=== PATIENT | male | born 1935 | race Hispanic/Latino ===

== ENCOUNTER 2017-08-01 10:26 | Outpatient (CLI) | payer MEDICARE ==
[2017-08-01 11:07] LABS: Blood Urea Nitrogen 23 mg/dL (9-20)
--- NOTE | 2017-08-01 11:58 | Cat Scan Report ---
CT ABDOMEN AND PELVIS WITHOUT CONTRAST INDICATION: Left-sided abdominal pain. COMPARISON: None similar at this institution. FINDINGS: Noncontrast abdomen and pelvis CT performed. LUNG BASES: Coronary and aortic atherosclerotic calcifications. ABDOMEN: Please note that sensitivity to detect small visceral lesions is limited due to the absence of intravenous or oral contrast. Large bilateral renal cysts, the largest 8.5 cm exophytic off the right lower renal pole while left interpolar exophytic cyst is approximately 11 x 7 cm as on axial image 76. Another 5.5 cm left interpolar cortical cyst posteriorly and a 2.5 cm hyperdense, likely hemorrhagic cyst anteroinferiorly also noted. Grossly unremarkable unenhanced liver, spleen, poorly distended gallbladder, pancreas, adrenals and IVC. Nonaneurysmal abdominal aorta with atherosclerotic calcifications. Nonopacified GI tract evaluation limited, though grossly nonobstructive. Mild stool throughout colon. Hepatic flexure incidentally noted interposed between the right hemidiaphragm and the liver. Few descending colon diverticuli. No ascites or size significant adenopathy. PELVIS: Numerous proximal to mid sigmoid diverticuli without acute complication. Mildly enlarged prostate creates an impression at the bladder base and may be correlated for clinically and with PSA. Small prostatic calcifications. No free fluid or significant adenopathy. Approximately 1.8 cm fat containing right inguinal hernia. Severe/advanced multilevel lumbar degenerative changes, including disc narrowing, spurring as also approximately 4-5 mm spondylolisthesis from L2-L5. Lower thoracic spine degenerative spurring and bilateral hip degenerative changes also noted. Osteopenia. CONCLUSION: 1. Numerous bilateral renal cysts, the largest on the left. A small left renal hemorrhagic cyst anteroinferiorly also noted, as described. 2. Various other incidental findings, including diverticulosis, enlarged prostate and advanced multilevel spinal degenerative changes, amongst others, as above. Thank you for the opportunity to participate in this patient's care.
== END 2017-08-01 10:27 | disposition home or self-care (01) ==
LOC: CT 10:26
PROVIDERS: ATTEND Internal Medicine
DX: N28.1 Cyst of kidney, acquired (principal); K57.30 Diverticulosis of large intestine without perforation or abscess without bleeding; N40.0 Benign prostatic hyperplasia without lower urinary tract symptoms; K40.90 Unilateral inguinal hernia, without obstruction or gangrene, not specified as recurrent; I25.10 Atherosclerotic heart disease of native coronary artery without angina pectoris; I70.0 Atherosclerosis of aorta; N42.89 Other specified disorders of prostate; M47.896 Other spondylosis, lumbar region; M43.16 Spondylolisthesis, lumbar region; M16.0 Bilateral primary osteoarthritis of hip; M85.88 Other specified disorders of bone density and structure, other site; M53.84 Other specified dorsopathies, thoracic region
CPT/HCPCS: 36415; 74176; 82565; 84520

== ENCOUNTER 2017-10-04 15:27 | Outpatient (CLI) | payer MEDICARE ==
--- NOTE | 2017-10-05 08:43 | Magnetic Resonance Report ---
MR ABDOMEN WITHOUT CONTRAST MR PELVIS WITHOUT CONTRAST HISTORY: Cyst of kidney. TECHNIQUE: Multiple T1 and T2-weighted images were obtained with and without fat suppression. No IV gadolinium was administered. COMPARISON: Noncontrast CT abdomen and pelvis dated 08/01/17. FINDINGS: Both kidneys are normal size and position. Bilateral renal cysts are again demonstrated on MRI. There are approximately 5 simple cysts in the right kidney. The largest cyst measures 9.1 cm in diameter at the inferior pole the right kidney. The four additional simple cysts within the right kidney measure up to 1 cm. 3 cysts are identified in the left kidney. There are 2 large simple cysts near mid pole of the left kidney measuring 6.2 cm and 9.0 cm. A 2 cm slightly complex cyst containing hemorrhagic or proteinaceous debris is also identified anteriorly near mid pole of the left kidney. No IV contrast was administered, however this has the appearance of a hemorrhagic cyst on both noncontrast CT and noncontrast MR. No suspicious renal mass is suspected. Signal characteristics of the liver, biliary system, pancreas, spleen and adrenal glands are within normal limits. The aorta is normal caliber. No evidence for ascites, adenopathy or acute inflammation. The bowel loops are poorly imaged on MR. There is suggestion of moderate sigmoid diverticulosis. No obvious obstruction or focal inflammation. The appendix is not confidently identified. The bladder is partially empty but unremarkable. The prostate gland is borderline to mildly enlarged measuring 5.3 cm in diameter. Mild levoscoliosis with advanced degenerative changes is noted in the lumbar spine. Advanced degenerative changes are also identified in both hips. There is a moderate to large left hip effusion. No evidence for fracture or suspicious bony lesion. IMPRESSION: Bilateral renal cysts as outlined above which are unchanged since the previous CT abdomen and pelvis dated 08/01/17. Nearly all of the cysts are consistent with Bosniak class I cysts. There is one 2 cm cyst in the mid left kidney consistent with a Bosniak class II cyst.
== END 2017-10-04 15:28 | disposition home or self-care (01) ==
LOC: MRI 15:27
PROVIDERS: ATTEND Internal Medicine Nephrology
DX: N28.1 Cyst of kidney, acquired (principal); M41.86 Other forms of scoliosis, lumbar region; M47.896 Other spondylosis, lumbar region; M16.0 Bilateral primary osteoarthritis of hip
CPT/HCPCS: 72195; 74181

== ENCOUNTER 2020-11-21 07:55 | Inpatient (IN) | payer MEDICARE ==
--- NOTE | 2020-11-21 08:33 | Emergency Department Report ---
HPI - General Chief Complaint: Fall Time Seen by Provider: 11/21/20 08:21 - HPI HPI: Room 21 The patient is an 85-year-old male present with a chief complaint of "fall." The patient reportedly fell this morning. The describes that as the patient slid out of bed and did not strike his head. There is no loss of consciousness. When asked what made him come to the emergency department the patient replies he does not know. When asked if anything is bothering him the patient replies "no." ED Past Medical Hx - Past Medical History Previous Medical History?: Yes Additional medical history: a.fib, cataract, hard of hearing - Surgical History Past Surgical History?: Yes - Social History Smoking Status: Former Smoker ED Review of Systems ROS: Stated complaint: GROUND LEVEL FALL Other details as noted in HPI Comment: Unobtainable due to pts medical conditions Physical Exam - Physical Exam Vital Signs: Vital Signs 11/21/20 07:57 Temperature 98.5 F Pulse Rate 66 Respiratory 25 H Rate Blood Pressure 167/86 O2 Sat by Pulse 100 Oximetry Physical Exam: GENERAL: The patient is well-developed well-nourished []. [] HEENT: Normocephalic. Atraumatic. Extraocular motions are intact. Patient has moist mucous membranes. NECK: Supple. No meningitic signs are noted. There is no adenopathy noted. CHEST/LUNGS: Clear to auscultation. There is no respiratory distress noted. HEART/CARDIOVASCULAR: Regular. There is no tachycardia. There is no gallop rub or murmur. ABDOMEN: Abdomen is soft, nontender. Patient has normal bowel sounds. There is no abdominal distention. SKIN: There is no rash. There is no edema. There is no diaphoresis. NEURO: The patient is awake, alert, and oriented. The patient is cooperative. The patient has normal speech. The patient able to move his left lower extremity and left upper extremity normally. Patient exhibits some difficulty raising right upper extremity. Patient will not move right lower extremity. Positive Babinski on the right. NIHSS=5 MUSCULOSKELETAL: There is no evidence of acute injury. ED Course Vital Signs 11/21/20 07:57 Temperature 98.5 F Pulse Rate 66 Respiratory 25 H Rate Blood Pressure 167/86 O2 Sat by Pulse 100 Oximetry - Consultations Consultation #1: 11/21/20 09:52 Case discussed with [facility] neurologist Dr. Khan-recommends contacting [facility] neurologist but there are no ICU beds available at [facility] 11/21/20 09:52 [facility] transfer line called 11/21/20 10:15 Case discussed with [facility] neurologist-occlusion appears to be too distal for patient to be a candidate for thrombectomy ED Medical Decision Making - Lab Data Result diagrams: 11/21/20 08:57 11/21/20 08:57 Laboratory Tests 11/21/20 11/21/20 11/21/20 08:35 08:57 08:57 WBC 8.1 RBC 4.12 Hgb 12.7 Hct 36.4 MCV 88 MCH 31 MCHC 35 H RDW 13.6 Plt Count 185 Lymph % (Auto) 22.7 [place] % (Auto) 6.8 Eos % (Auto) 3.1 Baso % (Auto) 1.1 Lymph # (Auto) 1.8 [place] # (Auto) 0.6 Eos # (Auto) 0.3 Baso # (Auto) 0.1 Seg Neutrophils % 66.3 Seg Neutrophils # 5.4 PT 15.9 H INR 1.29 H APTT 30.2 Thrombin Time 19.2 Sodium Potassium Chloride Carbon Dioxide Anion Gap BUN Creatinine Estimated GFR BUN/Creatinine Ratio Glucose POC Glucose 121 H Calcium 11/21/20 08:57 WBC RBC Hgb Hct MCV MCH MCHC RDW Plt Count Lymph % (Auto) [place] % (Auto) Eos % (Auto) Baso % (Auto) Lymph # (Auto) [place] # (Auto) Eos # (Auto) Baso # (Auto) Seg Neutrophils % Seg Neutrophils # PT INR APTT Thrombin Time Sodium 136 L Potassium 4.2 Chloride 100.9 Carbon Dioxide 25 Anion Gap 14 BUN 20 Creatinine 1.1 Estimated GFR > 60 BUN/Creatinine Ratio 18 Glucose 118 H POC Glucose Calcium 8.4 - EKG Data -: EKG Interpreted by Nm Rate: normal - EKG Data When compared to previous EKG there are: previous EKG unavailable Interpretation: other (Atrial fibrillation at 65 bpm. PVC) - Radiology Data Radiology results: report reviewed (CT head, CTA brain, CTA neck), image reviewed (CT head, CTA brain, CTA neck) [facility] [address] [place] [address] Cat Scan Report Signed Patient: PEGGY VOGEL JR MR#: [id number] : 1935 Acct:[id number] Age/Sex: 85 / M ADM Date: 11/21/20 Loc: ED A ttending Dr: Ordering Physician: DELIO MUNOZ MD Date of Service: 11/21/20 Procedure(s): CT cervical spine wo con Accession Number(s): [id number] cc: DELIO MUNOZ MD CT CERVICAL SPINE: CT CERVICAL SPINE: 11/21/2020 INDICATION / CLINICAL INFORMATION: "Fall". COMPARISON: None available. FINDINGS: CT images of the cervical spine were obtained. Images are evaluated in the axial, coronal, and sagittal planes. There is no evidence of acute abnormality. Multilevel degenerative disc and facet changes are present. Degenerative anterolisthesis is present at the C2-3 and C3-4 level. Degenerative disc space narrowing and facet degenerative changes are present at C4-5, C5-6, and C6-7. Bilateral foraminal narrowing is present at these levels as result of the facet hypertrophy and disc related osteophyte formation.. CRANIOCERVICAL JUNCTION: Unremarkable. PARASPINAL STRUCTURES: Unremarkable Degenerative changes are noted in the right temporal mandibular joint. The right mandibular condyle is positioned somewhat anterior to the condylar fossa, presumably positional. Left TMJ is unremarkable IMPRESSION: No acute abnormality. Degenerative changes. All CT scans at this location are performed using dose reduction to ALARA by means of automated exposure control. INDICATION / CLINICAL INFORMATION: "Fall". COMPARISON: None available. FINDINGS: CT images of the cervical spine were obtained. Images are evaluated in the axial, coronal, and sagittal planes. LEVEL BY LEVEL ANALYSIS: . CRANIOCERVICAL JUNCTION: Unremarkable. PARASPINAL STRUCTURES: IMPRESSION: All CT scans at this location are performed using dose reduction to ALARA by means of automated exposure control. Signer Name: Guillermo Bailon MD Signed: 11/21/2020 10:42 AM Workstation Name: [id number] Transcribed By: CHRISTEL Dictated By: Guillermo Bailon MD Electronically Authenticated By: Guillermo Bailon MD Signed Date/Time: 11/21/20 1042 DD/ 1037 TD/TT: Print Cancel [facility] [address] [place] [address] Cat Scan Report Signed Patient: PEGGY VOGEL JR MR#: [id number] : 1935 Acct:[id number] Age/Sex: 85 / M ADM Date: 11/21/20 Loc: ED Attending Dr: Ordering Physician: DELIO MUNOZ MD Date of Service: 11/21/20 Procedure(s): CT cervical spine wo con Accession Number(s): [id number] cc: DELIO MUNOZ MD CT CERVICAL SPINE: CT CERVICAL SPINE: 11/21/2020 INDICATION / CLINICAL INFORMATION: "Fall". COMPARISON: None available. FINDINGS: CT images of the cervical spine were obtained. Images are evaluated in the axial, coronal, and sagittal planes. There is no evidence of acute abnormality. Multilevel degenerative disc and facet changes are present. Degenerative anterolisthesis is present at the C2-3 and C3-4 level. Degenerative disc space narrowing and facet degenerative changes are present at C4-5, C5-6, and C6-7. Bilateral foraminal narrowing is present at these levels as result of the facet hypertrophy and disc related osteophyte formation.. CRANIOCERVICAL JUNCTION: Unremarkable. PARASPINAL STRUCTURES: Unremarkable Degenerative changes are noted in the right temporal mandibular joint. The right mandibular condyle is positioned somewhat anterior to the condylar fossa, presumably positional. Left TMJ is unremarkable IMPRESSION: No acute abnormality. Degenerative changes. All CT scans at this location are performed using dose reduction to ALARA by means of automated exposure control. INDICATION / CLINICAL INFORMATION: "Fall". COMPARISON: None available. FINDINGS: CT images of the cervical spine were obtained. Images are evaluated in the axial, coronal, and sagittal planes. LEVEL BY LEVEL ANALYSIS: . CRANIOCERVICAL JUNCTION: Unremarkable. PARASPINAL STRUCTURES: IMPRESSION: All CT scans at this location are performed using dose reduction to ALARA by means of automated exposure control. Signer Name: Guillermo Bailon MD Signed: 11/21/2020 10:42 AM Workstation Name: [id number] Transcribed By: CHRISTEL Dictated By: Guillermo Bailon MD Electronically Authenticated By: Guillermo Bailon MD Signed Date/Time: 11/21/20 1042 DD/ 1037 TD/TT: Print Cancel [facility] [address] [place] [address] Cat Scan Report Signed Patient: PEGGY VOGEL JR MR#: [id number] : 05/1935 Acct:[id number] Age/Sex: 85 / M ADM Date: 11/21/20 Loc: ED Attending Dr: Ordering Physician: DELIO MUNOZ MD Date of Service: 11/21/20 Procedure(s): CT angio head Accession Number(s): [id number] cc: DELIO MUNOZ MD CT angio neck, CT angio head HISTORY: Right lower extremity weakness. COMPARISON: CT head earlier same day TECHNIQUE: CTA of the neck and head is performed after IV contrast. 3-D/MIP reformats were postprocessed. Percentage stenosis is determined by direct quantitative measurements of diseased internal carotid artery diameter compared with normal distal internal carotid artery reference segments or by criteria similar to NASCET where applicable. All CT scans at this location are performed using CT dose reduction for ALARA by means of automated exposure control. FINDINGS: CTA NECK: Aortic arch: No significant abnormality. Cervical vertebral arteries: No occlusion or hemodynamically significant stenosis. Common Carotid arteries: Atherosclerosis of the carotid bulbs without occlusion or hemodynamically significant stenosis. Internal carotid arteries: Atherosclerosis of the proximal internal carotid arteries without occlusion or hemodynamically significant stenosis. CTA HEAD: Intracranial internal carotid arteries: Moderate atherosclerosis the carotid siphons. No occlusion or significant stenosis. Anterior cerebral arteries: The right A1 segment is hypoplastic or absent which is a normal common anatomic variant. No occlusion or significant stenosis. Middle cerebral arteries: No occlusion or significant stenosis. Intracranial vertebral arteries: No occlusion or significant stenosis. Basilar artery: No occlusion or significant stenosis. Posterior cerebral arteries: No occlusion or significant stenosis. No aneurysm. Additional findings: None. IMPRESSION: 1. CTA NECK: No occlusion or significant stenosis of the carotid or vertebral arteries. 2. CTA HEAD: No occlusion or significant stenosis of the major intracranial vasculature. Signer Name: Chintan Groves MD Signed: 11/21/2020 10:48 AM Workstation Name: [id number] Transcribed By: CS Dictated By: Chintan Groves MD Electronically Authenticated By: Chintan Groves MD Signed Date/Time: 11/21/20 1048 DD/ 1040 TD/TT: Print Cancel [facility] [address] [place] [address] Cat Scan Report Signed Patient: PEGGY VOGEL JR MR#: [id number] : 1935 Acct:[id number] Age/Sex: 85 / M ADM Date: 11/21/20 Loc: ED Attendi deshawn Dr: Ordering Physician: DELIO MUNOZ MD Date of Service: 11/21/20 Procedure(s): CT angio neck Accession Number(s): [id number] cc: DELIO MUNOZ MD CT angio neck, CT angio head HISTORY: Right lower extremity weakness. COMPARISON: CT head earlier same day TECHNIQUE: CTA of the neck and head is performed after IV contrast. 3-D/MIP reformats were postprocessed. Percentage stenosis is determined by direct quantitative measurements of diseased internal carotid artery diameter compared with normal distal internal carotid artery reference segments or by criteria similar to NASCET where applicable. All CT scans at this location are performed using CT dose reduction for ALARA by means of automated exposure control. FINDINGS: CTA NECK: Aortic arch: No significant abnormality. Cervical vertebral arteries: No occlusion or hemodynamically significant stenosis. Common Carotid arteries: Atherosclerosis of the carotid bulbs without occlusion or hemodynamically significant stenosis. Internal carotid arteries: Atherosclerosis of the proximal internal carotid arteries without occlusion or hemodynamically significant stenosis. CTA HEAD: Intracranial internal carotid arteries: Moderate atherosclerosis the carotid siphons. No occlusion or significant stenosis. Anterior cerebral arteries: The right A1 segment is hypoplastic or absent which is a normal common anatomic variant. No occlusion or significant stenosis. Middle cerebral arteries: No occlusion or significant stenosis. Intracranial vertebral arteries: No occlusion or significant stenosis. Basilar artery: No occlusion or significant stenosis. Posterior cerebral arteries: No occlusion or significant stenosis. No aneurysm. Additional findings : None. IMPRESSION: 1. CTA NECK: No occlusion or significant stenosis of the carotid or vertebral arteries. 2. CTA HEAD: No occlusion or significant stenosis of the major intracranial vasculature. Signer Name: Chintan Groves MD Signed: 11/21/2020 10:48 AM Workstation Name: [id number] Transcribed By: IVY Dictated By: Chintan Groves MD Electronically Authenticated By: Chintan Groves MD Signed Date/Time: 11/21/20 1048 DD/ 1040 TD/TT: Print - Differential Diagnosis CVA, closed head injury, Critical care attestation.: If time is entered above; I have spent that time in minutes in the direct care of this critically ill patient, excluding procedure time. ED Disposition Clinical Impression: CVA (cerebral vascular accident), Fall Disposition: [id number] OP ADMIT IP TO THIS HOSP Is pt being admited?: Yes Does the pt Need Aspirin: Yes Condition: Fair Referrals: KIKE BREWSTER MD [Primary Care Provider] - 3-5 Days Time of Disposition: 11:30 (Hospitalist notified (Dr Olguin))
[2020-11-21] MEDS ORDERED: ASPIRIN 325 MG TAB PO ONE (09:06)
--- NOTE | 2020-11-21 09:06 | Cat Scan Report ---
CT head/brain wo con INDICATION / CLINICAL INFORMATION: 85 years Male; MAIN. TECHNIQUE: Routine CT head without contrast. All CT scans at this location are performed using CT dos e reduction for ALARA by means of automated exposure control. COMPARISON: None. FINDINGS: BRAIN / INTRACRANIAL CONTENTS: There is extensive cerebral and pontine white matter disease most cons istent with advanced microvascular angiopathy. There is an older infarct involving left perez radiat a with encephalomalacia. Otherwise, correlation be needed regarding underlying acute ischemia given t he code stroke, particularly at within the kareen.. The motion degrades the image quality. However, the re is no clear CT evidence of acute renal hemorrhage or significant mass effect. ORBITS: No significant abnormality of visualized orbits. SINUSES / MASTOIDS: No significant abnormality in the visualized paranasal sinuses or mastoid air patrizia ls. CRANIOCERVICAL JUNCTION: No significant abnormality. ADDITIONAL FINDINGS: None. IMPRESSION: 1. There is extensive microvascular angiopathy as detailed above without CT evidence of acute intracr anial hemorrhage. The study was specified as code stroke and called emergently to Dr. Solo in the ER at 8:00 AM Central standard time. Signer Name: Teddy Disla MD Signed: 11/21/2020 9:02 AM Workstation Name: [id number]
[2020-11-21 09:11] LABS: Basophils # (Auto) 0.1 K/mm3 (0.0-0.1); Basophils % (Auto) 1.1 % (0.0-1.8); Eosinophils # (Auto) 0.3 K/mm3 (0.0-0.4); Eosinophils % (Auto) 3.1 % (0.0-4.3); Hematocrit 36.4 % (35.5-45.6); Hemoglobin 12.7 gm/dl (11.8-15.2); Lymphocytes # (Auto) 1.8 K/mm3 (1.2-5.4); Lymphocytes % (Auto) 22.7 % (13.4-35.0); Mean Corpuscular HGB Conc 35 % (32-34); Mean Corpuscular Volume 88 fl (84-94); Monocytes # (Auto) 0.6 K/mm3 (0.0-0.8); Monocytes % (Auto) 6.8 % (0.0-7.3); Platelet Count 185 K/mm3 (140-440); Red Blood Count 4.12 M/mm3 (3.65-5.03); Red Cell Distribution Width 13.6 % (13.2-15.2)
[2020-11-21 09:29] LABS: INR 1.29 (0.87-1.13)
[2020-11-21 09:30] LABS: Thrombin Time 19.2 Sec. (15.1-19.6)
[2020-11-21 09:37] LABS: Partial Thromboplastin Time 30.2 Sec. (24.2-36.6)
[2020-11-21 10:03] LABS: BUN/Creatinine Ratio 18; Blood Urea Nitrogen 20 mg/dL (9-20); Calcium 8.4 mg/dL (8.4-10.2); Hemolysis Index 7
--- NOTE | 2020-11-21 10:28 | Consultation ---
Medications and Allergies Allergies Allergy/AdvReac Type Severity Reaction Status Date / Time No Known Allergies Allergy Unverified 08/01/17 10:26 Physical Examination - Vital Signs Vital Signs: Vital Signs Temp Pulse Resp BP Pulse Ox 98.5 F 66 25 H 167/86 100 11/21/20 07:57 11/21/20 07:57 11/21/20 07:57 11/21/20 07:57 11/21/20 07:57 Results - Laboratory Findings CBC and BMP: 11/21/20 08:57 11/21/20 08:57 Abnormal Lab Findings: Abnormal Labs 11/21/20 11/21/20 11/21/20 08:35 08:57 08:57 MCHC 35 H PT 15.9 H INR 1.29 H Sodium Glucose POC Glucose 121 H 11/21/20 08:57 MCHC PT INR Sodium 136 L Glucose 118 H POC Glucose Assessment and Plan [facility] Consult Note # Demographics Consult Type: Acute Stroke Level 2 (4.5-24 hrs) Patient Location: Emergency Room First Name: Jarred Last Name: Ochoa Date of : 1935 Age: 85 Gender: Male Time of Initial Page (Eastern Time): 11/21/2020, 08:34 Time of Return Call (Eastern Time): 11/21/2020, 08:34 # HPI History: 85 yo man with history of afib, had fall while getting out of bed and noted to have right-sided weakness. Was on coumadin but was recently stopped secondary to cataract surgery # Scores Time of exam and NIHSS ( Time): 11/21/2020, 08:57 Level of Consciousness 1a: [0] = Alert; keenly responsive LOC Questions 1b: [0] = Answers both questions correctly LOC Commands 1c: [0] = Performs both tasks correctly Best Gaze 2: [0] = Normal Visual 3: [0] = No visual loss Facial Palsy 4: [0] = Normal symmetrical movements Motor Arm Left 5a: [0] = No drift Motor Arm Right 5b: [1] = Drift Motor Leg Left 6a: [0] = No drift Motor Leg Right 6b: [3] = No effort against gravity Limb Ataxia 7: [0] = Absent Sensory 8: [0] = Normal Best Language 9: [1] = [id number] aphasia Dysarthria 10: [0] = Normal Extinction and Inattention 11: [0] = No abnormality NIHSS Total: 5 # Exam SBP: 167 DBP: 86 Additional Neurologic Exam: Timing of exam delayed by patient being in CT scan # [id number] Past Medical History: A-fib Medications: anticoagulant, Coumadin # Data Head CT: no bleed, per radiologist read CTA Head: preliminarily reviewed by me, please refer to radiology read for official reading, Left A2 occlusion # Assessment Impression: Right-sided weakness upon awakening. Symptoms concerning for acute stroke. Given unclear time of onset he is not a candidate for IV tpa. ED physician discussed with neuro IR, clot too distal for interventional treatment. # Plan Thrombolytic/Intervention: NOT IV Thrombolytic or IA Intervention Thrombolytic Exclusion (< 3 hour window): time of onset unclear Intraarterial Exclusion: clot too distal Labs: hemoglobin A1c, lipid panel Imaging: (urgency: routine admission): MRI Brain without contrast Diagnostic Test: echo without bubble study Therapy/Evaluation: NPO until swallow evaluation, PT/OT evaluation Medication: Will need anticoagulation for afib. Timing of when to restart pending MRI results to evaluate extent of stroke. DVT Prophylaxis: SCD Other: LDL < 70, permissive hypertension, telemetry monitoring, I have discussed my recommendations with the referring provider Disposition: admit # Logistics Telemedicine: Interactive 2 way audio and visual telecommunication technology was utilized during this visit
--- NOTE | 2020-11-21 10:47 | Cat Scan Report ---
CT CERVICAL SPINE: CT CERVICAL SPINE: 11/21/2020 INDICATION / CLINICAL INFORMATION: "Fall". COMPARISON: None available. FINDINGS: CT images of the cervical spine were obtained. Images are evaluated in the axial, coronal, and sagitt al planes. There is no evidence of acute abnormality. Multilevel degenerative disc and facet changes are present. Degenerative anterolisthesis is present at the C2-3 and C3-4 level. Degenerative disc space narrowing and facet degenerative changes are present at C4-5, C5-6, and C6-7. Bilateral foraminal narrowing is present at these levels as result of the facet hypertrophy and disc related osteophyte formation.. CRANIOCERVICAL JUNCTION: Unremarkable. PARASPINAL STRUCTURES: Unremarkable Degenerative changes are noted in the right temporal mandibular joint. The right mandibular condyle is positioned somewhat anterior to the condylar fossa, presumably positional. Left TMJ is unremarkabl e IMPRESSION: No acute abnormality. Degenerative changes. All CT scans at this location are performed using dose reduction to ALARA by means of automated expos ure control. INDICATION / CLINICAL INFORMATION: "Fall". COMPARISON: None available. FINDINGS: CT images of the cervical spine were obtained. Images are evaluated in the axial, coronal, and sagitt al planes. LEVEL BY LEVEL ANALYSIS: . CRANIOCERVICAL JUNCTION: Unremarkable. PARASPINAL STRUCTURES: IMPRESSION: All CT scans at this location are performed using dose reduction to ALARA by means of automated expos ure control. Signer Name: Guillermo Bailon MD Signed: 11/21/2020 10:42 AM Workstation Name: [id number]
--- NOTE | 2020-11-21 10:52 | Cat Scan Report ---
CT angio neck, CT angio head HISTORY: Right lower extremity weakness. COMPARISON: CT head earlier same day TECHNIQUE: CTA of the neck and head is performed after IV contrast. 3-D/MIP reformats were postproces sed. Percentage stenosis is determined by direct quantitative measurements of diseased internal brady tid artery diameter compared with normal distal internal carotid artery reference segments or by crit eria similar to NASCET where applicable. All CT scans at this location are performed using CT dose re duction for ALARA by means of automated exposure control. FINDINGS: CTA NECK: Aortic arch: No significant abnormality. Cervical vertebral arteries: No occlusion or hemodynamically significant stenosis. Common Carotid arteries: Atherosclerosis of the carotid bulbs without occlusion or hemodynamically si gnificant stenosis. Internal carotid arteries: Atherosclerosis of the proximal internal carotid arteries without occlusio n or hemodynamically significant stenosis. CTA HEAD: Intracranial internal carotid arteries: Moderate atherosclerosis the carotid siphons. No occlusion or significant stenosis. Anterior cerebral arteries: The right A1 segment is hypoplastic or absent which is a normal common an atomic variant. No occlusion or significant stenosis. Middle cerebral arteries: No occlusion or significant stenosis. Intracranial vertebral arteries: No occlusion or significant stenosis. Basilar artery: No occlusion or significant stenosis. Posterior cerebral arteries: No occlusion or significant stenosis. No aneurysm. Additional findings: None. IMPRESSION: 1. CTA NECK: No occlusion or significant stenosis of the carotid or vertebral arteries. 2. CTA HEAD: No occlusion or significant stenosis of the major intracranial vasculature. Signer Name: hCintan Groves MD Signed: 11/21/2020 10:48 AM Workstation Name: [email or web address]
[2020-11-21] MEDS ORDERED: ACETAMINOPHEN 325 MG TAB PO PRN (13:06)
[2020-11-21] MEDS ORDERED: ONDANSETRON 4 MG/2 ML INJ IV PRN (13:06)
[2020-11-21] MEDS ORDERED: NALOXONE 0.4 MG/1 ML INJ IV PRN (13:06)
[2020-11-21] MEDS ORDERED: MORPHINE 2 MG/1 ML INJ IV PRN (13:06)
[2020-11-21] MEDS ORDERED: MORPHINE 4 MG/1 ML INJ IV PRN (13:06)
--- NOTE | 2020-11-21 15:54 | History and Physical Report ---
History of Present Illness Date of examination: 11/21/20 Date of admission: 11/21/20 11:28 Chief complaint: Lower extremity weakness History of present illness: 85-year-old male with past medical history of hyperlipidemia, chronic atrial fibrillation, hypertension, gout, hyperlipidemia who presents with lower extremity weakness. Patient was off of his Coumadin for about 4 days due to cataract surgery, restarted his 5 mg of Coumadin recently, however today the w ifeoma states that the patient try to get out of bed this morning and was weak. Right lower extremity was weak, no pain, no headache, no swelling, no slurring of speech, no confusion. Patient came to [facility] for evaluation, EKG showed atrial fibrillation with a rate of 65 and P BCs. NIH score was 5, CT of the brain did show occlusion in the left A2. No TPA was given since patient was out of the window for administration. Neurology recommended MRI, echocardiogram, permissive hypertension for at least 24 hours. Past History Past Medical History: other (Hyperlipidemia, chronic atrial fibrillation, hypertension, gout, hyperlipidemia) Past Surgical History: Other (Hernia repair, bilateral knee replacements) Social history: other (Former smoker, 5 years, half a pack of cigarettes per day, no alcohol use, no illicit drug use) Family history: no significant family history Medications and Allergies Allergies Allergy/AdvReac Type Severity Reaction Status Date / Time No Known Allergies Allergy Verified 11/21/20 13:18 Active Meds: Active Medications Acetaminophen (Acetaminophen 325 Mg Tab) 650 mg PO Q4H PRN PRN Reason: Pain MILD(1-3)/Fever >100.5/RAI Allopurinol (Allopurinol 100 Mg Tab) 100 mg PO QDAY BERE Atorvastatin Calcium (Atorvastatin 40 Mg Tab) 40 mg PO QHS BERE Diltiazem HCl (Diltiazem 60 Mg Tab) 60 mg PO Q6HR BERE Doxazosin Mesylate (Doxazosin 4 Mg Tab) 8 mg PO QDAY BERE Furosemide (Furosemide 40 Mg Tab) 40 mg PO QDAY BERE Heparin Sodium (Porcine) (Heparin 5,000 Unit/1 Ml Vial) 5,000 unit SUB-Q Q12HR BERE Lisinopril (Lisinopril 40 Mg Tab) 40 mg PO QDAY BERE Morphine Sulfate (Morphine 2 Mg/1 Ml Inj) 2 mg IV Q4H PRN PRN Reason: Pain, Moderate (4-6) Morphine Sulfate (Morphine 4 Mg/1 Ml Inj) 4 mg IV Q4H PRN PRN Reason: Pain , Severe (7-10) Naloxone HCl (Naloxone 0.4 Mg/1 Ml Inj) 0.1 mg IV Q2MIN PRN PRN Reason: Res Rate </= 8 or 02 SAT < 92% Ondansetron HCl (Ondansetron 4 Mg/2 Ml Inj) 4 mg IV Q8H PRN PRN Reason: Nausea And Vomiting Sodium Chloride (Sodium Chloride 0.9% 10 Ml Flush Syringe) 10 ml IV BID BERE Sodium Chloride (Sodium Chloride 0.9% 10 Ml Flush Syringe) 10 ml IV PRN PRN PRN Reason: LINE FLUSH Review of Systems All systems: negative Neurological: other (Right lower extremity weakness) Exam - Physical Exam Narrative exam: General appearance: no acute distress, well-nourished EENT: PERRL, EOM intact, hearing intact, clear oral mucosa, no dentition Neck: Present: supple, normal ROM Respiratory: bilateral CTA, negative: rales, rhonchi, wheezing Cardiovascular: Irregular rate/rhythm, Normal S1 & S2. No gallop, rub Extremities: no ischemia, No edema, normal temperature, normal color, Full ROM Abdominal: soft, no tenderness, non-distended, normal bowel sounds Integumentary: Present: clear, warm, dry no wounds, no erythema noted Psychiatric: appropriate mood/affect, intact judgment & insight Neurologic: CNII-XII intact, no dysphonia, no dysphagia 0/5 strength in lower right extremity, 5/5 strength in lower left extremity, 5/5 strength in upper extremities bilaterally - Constitutional Vitals: Temp Pulse Resp BP Pulse Ox 98.5 F 102 H 24 137/77 97 11/21/20 07:57 11/21/20 14:30 11/21/20 13:30 11/21/20 14:30 11/21/20 13:30 Results - Labs CBC & Chem 7: 11/21/20 08:57 11/21/20 08:57 Labs: Laboratory Last Values WBC 8.1 K/mm3 (4.5-11.0) 11/21/20 08:57 RBC 4.12 M/mm3 (3.65-5.03) 11/21/20 08:57 Hgb 12.7 gm/dl (11.8-15.2) 11/21/20 08:57 Hct 36.4 % (35.5-45.6) 11/21/20 08:57 MCV 88 fl (84-94) 11/21/20 08:57 MCH 31 pg (28-32) 11/21/20 08:57 MCHC 35 % (32-34) H 11/21/20 08:57 RDW 13.6 % (13.2-15.2) 11/21/20 08:57 Plt Count 185 K/mm3 (140-440) 11/21/20 08:57 Lymph % (Auto) 22.7 % (13.4-35.0) 11/21/20 08:57 [place] % (Auto) 6.8 % (0.0-7.3) 11/21/20 08:57 Eos % (Auto) 3.1 % (0.0-4.3) 11/21/20 08:57 Baso % (Auto) 1.1 % (0.0-1.8) 11/21/20 08:57 Lymph # (Auto) 1.8 K/mm3 (1.2-5.4) 11/21/20 08:57 [place] # (Auto) 0.6 K/mm3 (0.0-0.8) 11/21/20 08:57 Eos # (Auto) 0.3 K/mm3 (0.0-0.4) 11/21/20 08:57 Baso # (Auto) 0.1 K/mm3 (0.0-0.1) 11/21/20 08:57 Seg Neutrophils % 66.3 % (40.0-70.0) 11/21/20 08:57 Seg Neutrophils # 5.4 K/mm3 (1.8-7.7) 11/21/20 08:57 PT 15.9 Sec. (12.2-14.9) H 11/21/20 08:57 INR 1.29 (0.87-1.13) H 11/21/20 08:57 APTT 30.2 Sec. (24.2-36.6) 11/21/20 08:57 Thrombin Time 19.2 Sec. (15.1-19.6) 11/21/20 08:57 Sodium 136 mmol/L (137-145) L 11/21/20 08:57 Potassium 4.2 mmol/L (3.6-5.0) 11/21/20 08:57 Chloride 100.9 mmol/L (98-107) 11/21/20 08:57 Carbon Dioxide 25 mmol/L (22-30) 11/21/20 08:57 Anion Gap 14 mmol/L 11/21/20 08:57 BUN 20 mg/dL (9-20) 11/21/20 08:57 Creatinine 1.1 mg/dL (0.8-1.3) 11/21/20 08:57 Estimated GFR > 60 ml/min 11/21/20 08:57 BUN/Creatinine Ratio 18 % 11/21/20 08:57 Glucose 118 mg/dL (75-100) H 11/21/20 08:57 POC Glucose 121 mg/dL (70-105) H 11/21/20 08:35 Calcium 8.4 mg/dL (8.4-10.2) 11/21/20 08:57 Assessment and Plan Assessment and plan: 85-year-old male who presents with lower right extremity weakness in 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 Will assess when to start anticoagulation after obtaining the MRI Hold off on aspirin and Plavix until MRI of the brain is obtained Pending echocardiogram Right lower extremity hemiparesis Physical therapy consulted/occupational therapy consulted Chronic atrial fibrillation Cardiology consulted Hold off on anticoagulation per neurology recommendations Hold Eliquis Hold aspirin Continue diltiazem Subtherapeutic INR INR 1.29 Await results of MRI before starting anticoagulation Hypertension 24-hour permissive hypertension Restart hypertensive medications in the a.m. Gout Continue allopurinol Hyperlipidemia Continue statin Recent cataract surgery Continue eyedrops. Patient should have the eyedrops at the bedside. CODE STATUS: Full DVT prophylaxis: SCDs, hold off on anticoagulation until MRI is obtained Disposition: Continue to monitor patient for worsening of acute CVA, PT/OT, patient may need rehab. Spoke with the family, all questions answered. Advance Directives: Yes VTE prophylaxis?: Mechanical Contraindication Mechanical VTE Prophylaxis: Contraindicated
--- NOTE | 2020-11-21 17:14 | Consultation ---
History of Present Illness Consult date: 11/21/20 Consult reason: atrial fibrillation History of present illness: 85-year-old man with chronic atrial fibrillation admitted with right hemiparesis and suspected acute CVA. He is chronically on warfarin, has been well anticoagulated with a stable INR between 2 and 3, until he recently decided to undergo cataract surgery. In preparation for the surgery he was required to come off his warfarin anticoagulation. He had the eye surgery 4 days ago, and just resumed his warfarin prior to his presentation today. His INR today is 1.29. Patient is currently in the emergency room, awake and alert, appears mildly confused, and dysphasic. There is right-sided hemiparesis. On ekg monitor, he has atrial fibrillation with a well-controlled rate, consistent with his baseline. Echocardiogram today showed normal left ventricular chamber size and systolic function with ejection fraction 50 to 55%. There was severe dilatation of the left atrium, mild to moderate mitral regurgitation, and negative contrast saline test for PFO. Past History Past Medical History: atrial fib, other (Hyperlipidemia, chronic atrial fibrillation, hypertension, gout, hyperlipidemia) Past Surgical History: Other (Hernia repair, bilateral knee replacements) Social history: other (Former smoker, 5 years, half a pack of cigarettes per day, no alcohol use, no illicit drug use) Family history: no significant family history Medications and Allergies Allergies Allergy/AdvReac Type Severity Reaction Status Date / Time No Known Allergies Allergy Verified 11/21/20 13:18 Active Meds: Active Medications Acetaminophen (Acetaminophen 325 Mg Tab) 650 mg PO Q4H PRN PRN Reason: Pain MILD(1-3)/Fever >100.5/RAI Allopurinol (Allopurinol 100 Mg Tab) 100 mg PO QDAY BERE Atorvastatin Calcium (Atorvastatin 40 Mg Tab) 40 mg PO QHS BERE Diltiazem HCl (Diltiazem 60 Mg Tab) 60 mg PO Q6HR BERE Doxazosin Mesylate (Doxazosin 4 Mg Tab) 8 mg PO QDAY BERE Furosemide (Furosemide 40 Mg Tab) 40 mg PO QDAY BERE Heparin Sodium (Porcine) (Heparin 5,000 Unit/1 Ml Vial) 5,000 unit SUB-Q Q12HR BERE Lisinopril (Lisinopril 40 Mg Tab) 40 mg PO QDAY BERE Morphine Sulfate (Morphine 2 Mg/1 Ml Inj) 2 mg IV Q4H PRN PRN Reason: Pain, Moderate (4-6) Morphine Sulfate (Morphine 4 Mg/1 Ml Inj) 4 mg IV Q4H PRN PRN Reason: Pain , Severe (7-10) Naloxone HCl (Naloxone 0.4 Mg/1 Ml Inj) 0.1 mg IV Q2MIN PRN PRN Reason: Res Rate </= 8 or 02 SAT < 92% Ondansetron HCl (Ondansetron 4 Mg/2 Ml Inj) 4 mg IV Q8H PRN PRN Reason: Nausea And Vomiting Sodium Chloride (Sodium Chloride 0.9% 10 Ml Flush Syringe) 10 ml IV BID BERE Sodium Chloride (Sodium Chloride 0.9% 10 Ml Flush Syringe) 10 ml IV PRN PRN PRN Reason: LINE FLUSH Review of Systems ROS unobtainable: due to mental status Physical Examination Vital Signs Temp Pulse Resp BP Pulse Ox 98.5 F 66 25 H 167/86 100 11/21/20 07:57 11/21/20 07:57 11/21/20 07:57 11/21/20 07:57 11/21/20 07:57 General appearance: no acute distress, other (Patient is awake, but appears mildly confused and dysphasic) HEENT: Positive: PERRL Neck: Positive: neck supple Cardiac: Positive: irregularly irregular Lungs: Positive: Decreased Breath Sounds Neuro: Positive: Weakness Abdomen: Positive: Soft Male genitourinary: Positive: deferred Skin: Positive: Clear Extremities: Absent: edema Results 11/21/20 08:57 11/21/20 08:57 Coagulation 11/21/20 Range/Units 08:57 PT 15.9 H (12.2-14.9) Sec. INR 1.29 H (0.87-1.13) APTT 30.2 (24.2-36.6) Sec. CBC 11/21/20 Range/Units 08:57 WBC 8.1 (4.5-11.0) K/mm3 RBC 4.12 (3.65-5.03) M/mm3 Hgb 12.7 (11.8-15.2) gm/dl Hct 36.4 (35.5-45.6) % Plt Count 185 (140-440) K/mm3 Lymph # (Auto) 1.8 (1.2-5.4) K/mm3 [place] # (Auto) 0.6 (0.0-0.8) K/mm3 Eos # (Auto) 0.3 (0.0-0.4) K/mm3 Baso # (Auto) 0.1 (0.0-0.1) K/mm3 Comprehensive Metabolic Panel 11/21/20 Range/Units 08:57 Sodium 136 L (137-145) mmol/L Potassium 4.2 (3.6-5.0) mmol/L Chloride 100.9 (98-107) mmol/L Carbon Dioxide 25 (22-30) mmol/L BUN 20 (9-20) mg/dL Creatinine 1.1 (0.8-1.3) mg/dL Glucose 118 H (75-100) mg/dL Calcium 8.4 (8.4-10.2) mg/dL EKG interpretations - Telemetry EKG Rhythm: Atrial Fibrillation (Twelve-lead EKG unavailable, but he has atrial fibrillation with well-controlled ventricular rate on ekg monitor) Assessment and Plan - Patient Problems (1) Chronic atrial fibrillation Current Visit: Yes Status: Acute Plan to address problem: Patient is chronic atrial fibrillation on warfarin anticoagulation which was temporarily held for eye surgery. Presents with acute CVA, and subtherapeutic INR of 1.29. (2) CVA (cerebral vascular accident) Current Visit: Yes Status: Acute Plan to address problem: In addition to supportive management and physical therapy, he needs resumption of anticoagulation as soon as possible. The timing of restarting the anticoagulation will depend on the recommendations of the neurology service.
[2020-11-21] MEDS: hydrALAZINE 20 MG/1 ML INJ IV PRN (20:09)
[2020-11-21] MEDS ORDERED: HEPARIN 5,000 UNIT/1 ML VIAL SUB-Q SCH (22:00)
[2020-11-21] MEDS: dilTIAZem 60 MG TAB PO SCH (23:59)
[2020-11-22 05:46] LABS: Chol/HDL Ratio 2.32 %
[2020-11-22] MEDS: dilTIAZem 60 MG TAB PO SCH ×4 (05:55→18:07)
[2020-11-22] MEDS: BROMFENAC SODIUM OP SCH ×2 (08:26→18:07)
[2020-11-22] MEDS: LOTEPREDNOL ETABONATE OP SCH ×3 (08:26→18:07)
[2020-11-22] MEDS: BESIFLOXACIN HCL OP SCH ×3 (08:27→16:32)
[2020-11-22] MEDS ORDERED: FUROSEMIDE 40 MG TAB PO SCH (10:00)
[2020-11-22] MEDS ORDERED: allopurinoL 100 MG TAB PO SCH (10:00)
[2020-11-22] MEDS ORDERED: LISINOPRIL 40 MG TAB PO SCH (10:00)
[2020-11-22] MEDS ORDERED: DOXAZOSIN 4 MG TAB PO SCH (10:00)
[2020-11-22] MEDS ORDERED: ALBUTEROL 2.5 MG/3 ML NEBU IH SCH (12:15)
[2020-11-22] MEDS ORDERED: ALBUTEROL 2.5 MG/3 ML NEBU IH PRN (12:15)
--- NOTE | 2020-11-22 12:16 | Progress Note ---
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 Patient does have chronic vascular ischemia Pending reports of MRI of the brain Per recommendations of neurology, hold off on anticoagulation from 4 to 14 days. Will assess when to start anticoagulation after obtaining the MRI Hold off on aspirin and Plavix until MRI of the brain is obtained Echocardiogram with LVEF of 50 to 55%. Right atrium is moderately dilated, mild mitral regurgitation, mild tricuspid regurgitation, there are no thrombi seen on exam. Right upper and lower extremity hemiparesis Physical therapy consulted/occupational therapy consulted Chronic atrial fibrillation Cardiology consulted Hold off on anticoagulation per neurology recommendations Hold Eliquis Hold aspirin Continue diltiazem Subtherapeutic INR INR 1.29 Await results of MRI before starting anticoagulation Hypertension 24-hour permissive hypertension Continue home hypertensive medications Gout Continue allopurinol Hyperlipidemia Continue statin Recent cataract surgery Continue eyedrops. CODE STATUS: Full DVT prophylaxis: SCDs, hold off on anticoagulation until MRI is obtained Disposition: Continue to monitor patient for worsening of acute CVA, PT/OT, patient may need rehab. Spoke with the family, all questions answered. History Interval history: 11/22/2020: Patient seen and examined, right arm seems to be heavier than yesterday, patient is not able to hold his arm up as he did yesterday. Patient does have some wheezing. Patient is getting his eyedrops for his cataract surgery. No acute distress. Hospitalist Physical - Physical exam Narrative exam: General appearance: no acute distress, well-nourished EENT: PERRL, EOM intact, hearing intact, clear oral mucosa, no dentition Neck: Present: supple, normal ROM Respiratory: Mild wheezing bilaterally, negative: rales, rhonchi, Cardiovascular: Irregular rate/rhythm, Normal S1 & S2. No gallop, rub Extremities: no ischemia, No edema, normal temperature, normal color, Full ROM Abdominal: soft, no tenderness, non-distended, normal bowel sounds Integumentary: Present: clear, warm, dry no wounds, no erythema noted Psychiatric: appropriate mood/affect, intact judgment & insight Neurologic: CNII-XII intact, no dysphonia, no dysphagia 0/5 strength in lower right extremity, 1/5 strength in right upper extremity, 5/5 strength in lower left extremity, - Constitutional Vitals: Temp Pulse Resp BP Pulse Ox 98.1 F 69 18 164/76 96 11/22/20 08:21 11/22/20 08:21 11/22/20 12:05 11/22/20 08:21 11/22/20 12:05 General appearance: Present: no acute distress, other (Patient is awake, but appears mildly confused and dysphasic) Results - Labs CBC & Chem 7: 11/21/20 08:57 11/21/20 08:57 Labs: Laboratory Last Values WBC 8.1 K/mm3 (4.5-11.0) 11/21/20 08:57 RBC 4.12 M/mm3 (3.65-5.03) 11/21/20 08:57 Hgb 12.7 gm/dl (11.8-15.2) 11/21/20 08:57 Hct 36.4 % (35.5-45.6) 11/21/20 08:57 MCV 88 fl (84-94) 11/21/20 08:57 MCH 31 pg (28-32) 11/21/20 08:57 MCHC 35 % (32-34) H 11/21/20 08:57 RDW 13.6 % (13.2-15.2) 11/21/20 08:57 Plt Count 185 K/mm3 (140-440) 11/21/20 08:57 Lymph % (Auto) 22.7 % (13.4-35.0) 11/21/20 08:57 [place] % (Auto) 6.8 % (0.0-7.3) 11/21/20 08:57 Eos % (Auto) 3.1 % (0.0-4.3) 11/21/20 08:57 Baso % (Auto) 1.1 % (0.0-1.8) 11/21/20 08:57 Lymph # (Auto) 1.8 K/mm3 (1.2-5.4) 11/21/20 08:57 [place] # (Auto) 0.6 K/mm3 (0.0-0.8) 11/21/20 08:57 Eos # (Auto) 0.3 K/mm3 (0.0-0.4) 11/21/20 08:57 Baso # (Auto) 0.1 K/mm3 (0.0-0.1) 11/21/20 08:57 Seg Neutrophils % 66.3 % (40.0-70.0) 11/21/20 08:57 Seg Neutrophils # 5.4 K/mm3 (1.8-7.7) 11/21/20 08:57 PT 15.9 Sec. (12.2-14.9) H 11/21/20 08:57 INR 1.29 (0.87-1.13) H 11/21/20 08:57 APTT 30.2 Sec. (24.2-36.6) 11/21/20 08:57 Thrombin Time 19.2 Sec. (15.1-19.6) 11/21/20 08:57 Sodium 136 mmol/L (137-145) L 11/21/20 08:57 Potassium 4.2 mmol/L (3.6-5.0) 11/21/20 08:57 Chloride 100.9 mmol/L (98-107) 11/21/20 08:57 Carbon Dioxide 25 mmol/L (22-30) 11/21/20 08:57 Anion Gap 14 mmol/L 11/21/20 08:57 BUN 20 mg/dL (9-20) 11/21/20 08:57 Creatinine 1.1 mg/dL (0.8-1.3) 11/21/20 08:57 Estimated GFR > 60 ml/min 11/21/20 08:57 BUN/Creatinine Ratio 18 % 11/21/20 08:57 Glucose 118 mg/dL (75-100) H 11/21/20 08:57 POC Glucose 121 mg/dL (70-105) H 11/21/20 08:35 Hemoglobin A1c 5.7 % (4-6) 11/22/20 04:19 Calcium 8.4 mg/dL (8.4-10.2) 11/21/20 08:57 Triglycerides 165 mg/dL (2-149) H 11/22/20 04:19 Cholesterol 142 mg/dL (50-199) 11/22/20 04:19 LDL Cholesterol Direct 71 mg/dL (50-130) 11/22/20 04:19 HDL Cholesterol 61 mg/dL (40-59) H 11/22/20 04:19 Cholesterol/HDL Ratio 2.32 % 11/22/20 04:19 [place]/IV: Voiding Method Condom Catheter Active Medications - Current Medications Current Medications: Generic Name Dose Route Start Last Admin Trade Name Freq PRN Reason Stop Dose Admin Acetaminophen 650 mg 11/21/20 13:06 Acetaminophen 325 Mg Tab PO Q4H PRN Pain MILD(1-3)/Fever >100.5/RAI Allopurinol 100 mg 11/22/20 10:00 11/22/20 09:04 Allopurinol 100 Mg Tab PO 100 mg QDAY BERE Administration Atorvastatin Calcium 40 mg 11/21/20 22:00 11/21/20 22:35 Atorvastatin 40 Mg Tab PO 40 mg QHS BERE Administration Diltiazem HCl 60 mg 11/21/20 18:00 11/22/20 08:04 Diltiazem 60 Mg Tab PO Not Given Q6HR BERE Doxazosin Mesylate 8 mg 11/22/20 10:00 11/22/20 09:04 Doxazosin 4 Mg Tab PO 8 mg QDAY BERE Administration Furosemide 40 mg 11/22/20 10:00 11/22/20 09:05 Furosemide 40 Mg Tab PO 40 mg QDAY [facility] Administration Hydralazine HCl 10 mg 11/21/20 19:51 11/21/20 20:09 Hydralazine 20 Mg/1 Ml Inj IV 10 mg Q3H PRN Administration Hypertension Lisinopril 40 mg 11/22/20 10:00 11/22/20 09:04 Lisinopril 40 Mg Tab PO 40 mg QDAY [facility] Administration Miscellaneous Medication 1 drops 11/22/20 08:00 11/22/20 08:26 Bromfenac Sodium (Nf) OP 1 drops BID@0800,1800 [facility] Administration Miscellaneous Medication 1 ml 11/22/20 08:00 11/22/20 08:26 Loteprednol Etabonate [Inveltys] OP 1 ml TID@0800,1300,1800 BERE Administration Miscellaneous Medication 1 ml 11/22/20 08:00 11/22/20 08:27 Besifloxacin Hcl [Besivance 0.6%] OP 1 ml QID@0800,1200,1600,2000 [facility] Administration Morphine Sulfate 2 mg 11/21/20 13:06 Morphine 2 Mg/1 Ml Inj IV Q4H PRN Pain, Moderate (4-6) Morphine Sulfate 4 mg 11/21/20 13:06 Morphine 4 Mg/1 Ml Inj IV Q4H PRN Pain , Severe (7-10) Naloxone HCl 0.1 mg 11/21/20 13:06 Naloxone 0.4 Mg/1 Ml Inj IV Q2MIN PRN Res Rate </= 8 or 02 SAT < 92% Ondansetron HCl 4 mg 11/21/20 13:06 Ondansetron 4 Mg/2 Ml Inj IV Q8H PRN Nausea And Vomiting Sodium Chloride 10 ml 11/21/20 22:00 11/22/20 09:05 Sodium Chloride 0.9% 10 Ml Flush Syringe IV 10 ml BID BERE Administration Sodium Chloride 10 ml 11/21/20 13:06 Sodium Chloride 0.9% 10 Ml Flush Syringe IV PRN PRN LINE FLUSH
[2020-11-22] MEDS: hydrALAZINE 20 MG/1 ML INJ IV PRN (15:23)
--- NOTE | 2020-11-22 17:18 | Discharge Summary ---
Providers - Providers Date of Admission: 11/21/20 11:28 Date of discharge: 11/22/20 Attending physician: MARV DOMINGUEZ MD 11/21/20 09:29 Speech Therapy Evaluation and Treat [CONS] Stat Reason For Exam: Did not pass swallow screen 11/21/20 13:12 Occupational Therapy Evaluate and Treat [CONS] Routine Comment: Reason For Exam: right leg weakness s/p CVA Physical Therapy Evaluation and Treat [CONS] Routine Comment: Reason For Exam: right leg weakness s/p CVA 11/21/20 13:13 Consult to Physician [CONS] Routine Comment: Consulting Provider: CRISTIANE TOPETE Physician Instructions: Reason For Exam: acute cva w/afib 11/21/20 13:22 Consult to Physician [CONS] Routine Comment: Consulting Provider: SUDARSHAN PURI Physician Instructions: Reason For Exam: acute CVA Primary care physician: KIKE BREWSTER MD Hospitalization Reason for admission: Acute lower extremity weakness and right leg Condition: Poor Hospital course: Assessment and plan: 85-year-old male who presents with lower right extremity weakness in the context of acute embolic CVA. Spoke with the pillowcase folder earlier today, family is requesting patient to be transferred to [facility] for continued care. Family is not satisfied with the level of care here, stating that patient has not been getting his eyedrops status post cataract surgery. I informed the family that I spoke with the nurse personally and they informed me that they were giving the patient his eyedrops on Tuesday and it has been documented that the patient has been getting his eyedrops today on 11/22/2020. The family states that they would like to visit the patient, however due to hospital policy, the family was not able to visit the patient today. They were told something otherwise and they were very upset. The family also is upset that the patient did not receive TPA. After reviewing the neurology note, the neurologist stated that it was an unspecified time in which the stroke began and therefore TPA was not given to the patient. I spoke with the family, all members at length pertaining to the patient's condition and informed them also that the CT of the head per the radiologist read did not show any occlusion, however the neurologist did say there was an occlusion. The family is aware the patient had a stroke, I also informed them that his right arm has become weaker and he has right-sided hemiparesis. However the patient's family stated that they would like to transfer the patient to another hospital. I spoke with case management, the hospital, [facility] was on diversion. They stated they would take the patient to the ER. I advised against that due to the patient's condition. I informed them that the patient was having mild wheezing and he is on low-dose oxygen. I also informed them that patient is not on Coumadin and not anticoagulated. We were monitoring the patient for these things, however they stated they would like to take the patient themselves. I advised them that the patient needed to be transferred in an ambulance due to the patient's comorbidities and current condition, however they stated that they understood that it would be better for the patient to be transferred in an ambulance, however they wanted to expedite the transfer themselves immediately. The pillowcase folder, Georgette also quoted me a rico on the ambulance and that the ambulance would be here between 8 PM and 9 PM, and I informed the family that this will be the best option, but they still declined to take the patient themselves in their own personal vehicle. After speaking with them, case management and the nursing staff brought the papers for the patient to be discharged from the hospital per AMA. I once again spoke with the family [id number] and advised them if they still decide to take the patient in their own personal vehicle, there was a possibility that the patient could stroke again since he was not on anticoagulation or go into respiratory distress. I also informed them that they should go to the nearest hospital since I was informed that the drive to [facility] was almost 90 minutes. They stated they understood the risk, patient was prepared, transported to the ER entrance, and the family took the patient in their personal vehicle to the hospital of their choice. I informed them if they would like the records from the hospital, they will need to contact the hospital and it would take at least 3 days for the records to be released. They verbalized understanding of this. Acute embolic CVA CTA of the head showing L2 embolic stroke per neurology read. CT of the head without any hemorrhagic acute CVA. Patient does have chronic vascular ischemia Pending reports of MRI of the brain Per recommendations of neurology, hold off on anticoagulation from 4 to 14 days. Will assess when to start anticoagulation after obtaining the MRI Hold off on aspirin and Plavix until MRI of the brain is obtained Echocardiogram with LVEF of 50 to 55%. Right atrium is moderately dilated, mild mitral regurgitation, mild tricuspid regurgitation, there are no thrombi seen on exam. Right upper and lower extremity hemiparesis Physical therapy consulted/occupational therapy consulted Chronic atrial fibrillation Cardiology consulted Hold off on anticoagulation per neurology recommendations Hold Eliquis Hold aspirin Continue diltiazem Subtherapeutic INR INR 1.29 Await results of MRI before starting anticoagulation Hypertension 24-hour permissive hypertension Continue home hypertensive medications Gout Continue allopurinol Hyperlipidemia Continue statin Recent cataract surgery Continue eyedrops. Reactive airway disease Patient without any respiratory distress Oxygen supplementation Duo nebs and breathing treatments as needed CODE STATUS: Full DVT prophylaxis: SCDs, hold off on anticoagulation until MRI is obtained Disposition: DC- LEFT AGAINST MED ADVICE Final Discharge Diagnosis (Prints w/discharge instructions): Clinical acute em bolic stroke. Right sided hemiparesis. Chronic atrial fibrillation. Subtherapeutic INR. Hypertension. Gout. Hyperlipidemia. Recent cataract surgery. Reactive airway disease Core Measure Documentation - Palliative Care Palliative Care/ Comfort Measures: Not Applicable - Core Measures Any of the following diagnoses?: stroke - VTE Discharge Requirements Deep Vein Thrombosis/Pulmonary Embolism Present on Admission: No Has pt received <5 days of overlap therapy or INR<2.0: No Anticoagulant overlap therapy prescribed at discharge: No Contraindication No Overlap Therapy order at DC: Medical Contraindication - Stroke Discharge Requirements Statin for LDL = or >70 mg/dl on DC: Not Applicable Anticoag for atrial fib/atrial flutter: Not Applicable Antithrombotic for ischemic stroke: No Reason for no antithrombotic on DC: Medical Contraindication Exam - Physical Exam Narrative exam: General appearance: no acute distress, well-nourished EENT: PERRL, EOM intact, hearing intact, clear oral mucosa, no dentition Neck: Present: supple, normal ROM Respiratory: Mild wheezing bilaterally, negative: rales, rhonchi, Cardiovascular: Irregular rate/rhythm, Normal S1 & S2. No gallop, rub Extremities: no ischemia, No edema, normal temperature, normal color, Full ROM Abdominal: soft, no tenderness, non-distended, normal bowel sounds Integumentary: Present: clear, warm, dry no wounds, no erythema noted Psychiatric: appropriate mood/affect, intact judgment & insight Neurologic: CNII-XII intact, no dysphonia, no dysphagia 0/5 strength in lower right extremity, 1/5 strength in right upper extremity, 5/5 strength in lower left extremity, - Constitutional Vitals: Temp Pulse Resp BP Pulse Ox 98.1 F 72 18 167/64 96 11/22/20 08:21 11/22/20 15:26 11/22/20 15:26 11/22/20 15:23 11/22/20 12:05 Plan Follow up with: KIKE BREWSTER MD [Primary Care Provider] - 3-5 Days Forms: AMA Form
[2020-11-22 17:48] VITALS: BP 112/55
--- NOTE | 2020-11-24 11:37 | Electrocardiograph Report ---
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
--- NOTE | 2020-11-27 17:01 | Magnetic Resonance Report ---
MR brain wo con INDICATION / CLINICAL INFORMATION: 85 years Male; acute CVA. TECHNIQUE: Multiplanar, multisequence MR images of the brain were obtained. COMPARISON: None available. FINDINGS: BRAIN / INTRACRANIAL CONTENTS: The motion degrades image quality despite using a fast acquisition seq uences. However, there are foci of acute infarction origin along the vascular distribution of the hig h left cerebral hemisphere. The findings also include a 9 mm focus of acute infarction along the supe rior left frontal cortex. On the FLAIR sequences I, there is otherwise extensive cerebral and pontine white matter disease most consistent with advanced microvascular angiopathy. There is an old infarct involving left perez rad iata. There is moderate to cerebral atrophy with associated prominence of the ventricular system. No extra-axial fluid collections are identified at. CRANIOCERVICAL JUNCTION: No significant abnormality. VASCULAR FLOW-VOIDS: No significant abnormality. ORBITS: No significant abnormality of visualized orbits. SINUSES / MASTOIDS: No significant abnormality in the visualized paranasal sinuses or mastoid air patrizia ls. ADDITIONAL FINDINGS: None. IMPRESSION: 1. There are foci of acute infarction along the border zone vascular distribution the high left cereb ral hemisphere as described. The findings include a 9 mm focus along the cortex of the superior left frontal lobe at. 2. There is otherwise extensive microvascular angiopathy and old infarct involving left perez radiat a. Signer Name: Teddy Disla MD Signed: 11/21/2020 5:27 PM Workstation Name: [id number]
== END 2020-11-22 17:40 | disposition left against medical advice (07) | DRG 65 ==
LOC: ED 07:55 → OBSVTOIN 11:28 → 4A 11:28
PROVIDERS: ADMIT Family Medicine; ATTEND Family Medicine
DX: I63.49 Cerebral infarction due to embolism of other cerebral artery (principal); G81.91 Hemiplegia, unspecified affecting right dominant side; I48.20 Chronic atrial fibrillation, unspecified; I10 Essential (primary) hypertension; M10.9 Gout, unspecified; E78.5 Hyperlipidemia, unspecified; J45.909 Unspecified asthma, uncomplicated; R29.705 NIHSS score 5; Z96.653 Presence of artificial knee joint, bilateral; Z87.891 Personal history of nicotine dependence
CPT/HCPCS: 36415; 70450; 70496; 70498; 70551; 72125; 80048; 80061; 82962; 83036; 85025; 85610; 85670; 85730; 93005; 93306; 94640; G0378; A9270-GY; J0360; Q9967